=== PATIENT | female | born 1950 | race Caucasian/White ===

== ENCOUNTER → 2017-06-09 | Outpatient (CLI) | payer OTHER ==
--- NOTE | 2017-06-09 16:39 | MG ---
Examination: Bilateral screening mammogram. Clinical history: Routine screening. Technique: Digital CC and MLO views of both breasts were obtained. Computer aided detection analysis was performed and used during the interpretation. Comparison: 11/19/2015. Findings: The breasts are composed of scattered fibroglandular densities. Benign-appearing calcifications are noted in the breasts bilaterally. No suspicious mass, area of architectural distortion or suspicious cluster of microcalcifications is noted. Impression: 1. No mammographic evidence of malignancy. BI-RADS category 2-benign findings. Recommend routine annual screening mammogram. Diagnostic CAD was utilized and reviewed. * 0 (ZERO) - ASSESSMENT INCOMPLETE; ADDITIONAL IMAGING IS NEEDED. * 0C - ASSESSMENT INCOMPLETE, NEEDS ADDITIONAL IMAGING EVALUATION AND/OR PRIOR MAMMOGRAMS FOR COMPAR RYAN. * 1/1 (ONE) - NEGATIVE. * 2/II (TWO) - BENIGN FINDINGS. * 3/III (THREE) - PROBABLY BENIGN FINDING; SHORT INTERVAL FOLLOW-UP SUGGESTED. * 4/IV (FOUR) - SUSPICIOUS ABNORMALITY; BIOPSY SHOULD BE CONSIDERED. * 5/V - HIGHLY SUSPICIOUS OF MALIGNANCY; BIOPSY SHOULD BE PERFORMED. * 6/IV - KNOWN BIOPSY PROVEN MALIGNANCY-APPROPRIATE ACTION SHOULD BE TAKEN. A NEGATIVE X-RAY REPORT SHOULD NOT DELAY BIOPSY IF A DOMINANT OR CLINICALLY SUSPICIOUS MASS IS PRESENT; 4 TO 8 PERCENT OF CANCERS ARE NOT IDENTIFIED BY X-RAY. A NEGATIVE REPORT MAY REINFORCE THE CLINICAL IMPRESSION. ADENOSIS AND DENSE BREASTS MAY OBSCURE AN UNDERLYING NEOPLASM. Reported By:
== END ==
LOC: RAD 09:36
PROVIDERS: ATTEND Internal Medicine
DX: Z12.31 Encounter for screening mammogram for malignant neoplasm of breast (principal)
CPT/HCPCS: 77067

== ENCOUNTER → 2017-07-21 | Day surgery (SDC) | payer OTHER ==
[~2017-07-21] MED LIST: D5 LR 1000 ML 1,000 ML IV ONE; DIPRIVAN VIAL 0 ML ONE; FENTANYL INJ 100 mcg ONE; PEPCID 20 MG IV PREMIX* 20 MG/50 ML BAG IV ONE; REGLAN INJ 10 MG VIAL ONE; VERSED ONE
[2017-07-21 08:49] VITALS: BP 113/59
== END ==
LOC: SURG1 08:26
PROVIDERS: ATTEND Internal Medicine Gastroenterology
PROC: 0DJD8ZZ Inspection of Lower Intestinal Tract, Via Natural or Artificial Opening Endoscopic (ICD-10-PCS; principal; 2017-07-21)
DX: Z53.9 Procedure and treatment not carried out, unspecified reason (principal); Z86.010 Personal history of colon polyps
CPT/HCPCS: A4222; S0028; J2250; J2765; J3010; J3490; J7120

== ENCOUNTER → 2018-03-03 | Outpatient (CLI) | payer OTHER ==
[2017-07-21 08:49] VITALS: BP 113/59
--- NOTE | 2018-03-03 12:12 | CT ---
History: Dizziness and weakness x1 week Study: CT head without contrast Findings: [address] imaging through the head is performed with coronal and sagittal reformatted i mages submitted as well. Ventricles are normal in size and position. Rock-white matter appear unremar kable. No space-occupying mass, bleed, infarct or subdural collection is identified. The bony calvari um appears intact. Impression: Normal CT of the head. Reported By:
== END ==
LOC: RAD 11:01
PROVIDERS: ATTEND Nurse Practitioner Family
DX: R51 Headache (principal); R42 Dizziness and giddiness
CPT/HCPCS: 70450

== ENCOUNTER 2020-07-14 14:12 | Inpatient (IN) ==
[2020-07-14] MEDS ORDERED: REMDESIVIR (INVESTIGATIONAL DRUG GS-5734) 200 MG in NS 250 ML IV 250 ML IV NR (16:15)
[2020-07-14] MEDS: MUCOMYST (RESPIRATORY USE ONLY) NEB SCH ×2 (16:24→21:34)
[2020-07-14] MEDS: PULMICORT NEB TX 0.5 MG NEB SCH ×2 (16:24→21:34)
[2020-07-14] MEDS ORDERED: DUONEB 0.5 MG/3 MG (3 mL) NEB ONE (16:54)
[2020-07-14 16:57] LABS: BASOPHILS % (AUTO) 0.3 % (0.2-1.0); HEMATOCRIT 40.2 % (36.0-47.0); HEMOGLOBIN 13.6 g/dL (12.0-16.0); LYMPHOCYTES # (AUTO) 1.1 X10^3/uL (1.3-2.9); LYMPHOCYTES % (AUTO) 13.4 % (21.0-51.0); MEAN CORPUSCULAR HEMOGLOBIN 29.3 pg (27.0-34.0); MEAN CORPUSCULAR HGB CONC 33.8 g/dL (33.0-35.0); MEAN CORPUSCULAR VOLUME 86.6 fL (80.0-100.0); MEAN PLATELET VOLUME 8.6 fL (7.4-11.0); MONOCYTES # (AUTO) 0.5 x10^3/uL (0.3-0.8); MONOCYTES % (AUTO) 6.1 % (0.0-13.0); NEUTROPHILS # (AUTO) 6.8 x10^3/uL (2.2-4.8); NEUTROPHILS % (AUTO) 80.2 % (42.0-75.0); PLATELET COUNT 249 X10^3/uL (150.0-450.0); RED BLOOD COUNT 4.64 X10^6/uL (3.5-5.4); RED CELL DISTRIBUTION WIDTH 12.6 % (11.6-16.5); WHITE BLOOD COUNT 8.4 X10^3/uL (3.6-10.0)
[2020-07-14 17:04] LABS: ABG BASE EXCESS 1.6 mmol/L (-2.0-2.0); ABG HCO3 21.6 mmol/L (22-26)
[2020-07-14 17:05] LABS: ABG ALLEN TEST POS
[2020-07-14 17:23] LABS: ALANINE AMINOTRANSFERASE 27 Units/L (12-78); ALKALINE PHOSPHATASE 62 Units/L (46-116); ASPARTATE AMINO TRANSFERASE 31 Units/L (15-37); BLOOD UREA NITROGEN 13 mg/dL (7-18); CALCIUM 8.4 mg/dL (8.5-10.1); CARBON DIOXIDE 28.1 mmol/L (21-32); CHLORIDE 99 mmol/L (98-107); CKMB % 1.9 % (<4); COR CA(FOR HYPOALB) 9.2 mg/dL (8.5-10.1); CREATINE KINASE 52 Units/L (26-192); CREATINE KINASE MB < 1.0 ng/mL (0-4.0); CREATININE 1.16 mg/dL (0.55-1.02); SODIUM 136 mmol/L (136-145); TOTAL PROTEIN 7.1 g/dL (6.4-8.2); TROPONIN I < 0.02 ng/mL (0-1.5); eGFR NON BLACK RACES 49 (>60)
[2020-07-14] MEDS ORDERED: ZOFRAN INJ 4 MG VIAL ONE (17:23)
[2020-07-14] MEDS ORDERED: NS 1/2 1000 ML IV 1,000 ML IV ONE (17:24)
[2020-07-14] MEDS: ROBITUSSIN DM PO SCH ×2 (17:30→23:06)
[2020-07-14] MEDS: NS 1/2 1000 ML IV 1,000 ML IV SCH (17:30)
[2020-07-14] MEDS: PEPCID 20 MG IV PREMIX* 20 MG/50 ML BAG IV SCH ×2 (17:40→22:04)
[2020-07-14] MEDS: PROTONIX INJ 40 MG VIAL IVP SCH ×2 (17:40→22:05)
[2020-07-14] MEDS: ZOFRAN INJ 4 MG VIAL IVP PRN ×2 (17:40→22:45)
[2020-07-14] MEDS: DUONEB 0.5 MG/3 MG (3 mL) NEB SCH ×2 (17:45→21:34)
[2020-07-14] MEDS: VSL#3 PO SCH (17:45)
[2020-07-14] MEDS: LEVAQUIN PREMIX IV 750 MG 750 MG/150 ML BAG IV SCH (18:28)
[2020-07-14] MEDS ORDERED: TYLENOL 325 MG TAB PO ONE (19:20)
[2020-07-14] MEDS: TYLENOL 325 MG TAB PO PRN (19:30)
[2020-07-14] MEDS ORDERED: PHENERGAN INJ 25 MG IM PRN (19:50)
[2020-07-14] MEDS ORDERED: PHENERGAN INJ 25 MG IM ONE (19:53)
[2020-07-14] MEDS ORDERED: NS 250 ML IV 250 ML IV ONE (22:12)
[2020-07-14] MEDS ORDERED: REMDESIVIR (INVESTIGATIONAL DRUG GS-5734) IV ONE (22:12)
[2020-07-14] MEDS: TUSSIONEX PENNKINETIC SUSP PO SCH (23:06)
[2020-07-14] MEDS: SOLU-Medrol 40 MG VIAL IVP SCH (23:07)
[2020-07-14] MEDS: TESSALON PERLES PO SCH (23:08)
[2020-07-15 05:16] LABS: BASOPHILS % (AUTO) 0.3 % (0.2-1.0); HEMATOCRIT 39.3 % (36.0-47.0); HEMOGLOBIN 13.4 g/dL (12.0-16.0); LYMPHOCYTES # (AUTO) 0.7 X10^3/uL (1.3-2.9); LYMPHOCYTES % (AUTO) 11.9 % (21.0-51.0); MEAN CORPUSCULAR HEMOGLOBIN 29.5 pg (27.0-34.0); MEAN CORPUSCULAR HGB CONC 34.1 g/dL (33.0-35.0); MEAN CORPUSCULAR VOLUME 86.5 fL (80.0-100.0); MEAN PLATELET VOLUME 9.4 fL (7.4-11.0); MONOCYTES # (AUTO) 0.3 x10^3/uL (0.3-0.8); MONOCYTES % (AUTO) 4.3 % (0.0-13.0); NEUTROPHILS # (AUTO) 5.3 x10^3/uL (2.2-4.8); NEUTROPHILS % (AUTO) 83.5 % (42.0-75.0); PLATELET COUNT 246 X10^3/uL (150.0-450.0); RED BLOOD COUNT 4.54 X10^6/uL (3.5-5.4); RED CELL DISTRIBUTION WIDTH 12.7 % (11.6-16.5); WHITE BLOOD COUNT 6.3 X10^3/uL (3.6-10.0)
[2020-07-15 05:28] LABS: ALANINE AMINOTRANSFERASE 31 Units/L (12-78); ALBUMIN 2.6 g/dL (3.4-5.0); ALKALINE PHOSPHATASE 58 Units/L (46-116); ASPARTATE AMINO TRANSFERASE 39 Units/L (15-37); BLOOD UREA NITROGEN 10 mg/dL (7-18); CALCIUM 8.2 mg/dL (8.5-10.1); CARBON DIOXIDE 26.3 mmol/L (21-32); CHLORIDE 103 mmol/L (98-107); COR CA(FOR HYPOALB) 9.3 mg/dL (8.5-10.1); COR NA(FOR HYPERGLY) 139 mmol/L (136-145); CREATININE 1.07 mg/dL (0.55-1.02); SODIUM 138 mmol/L (136-145); TOTAL PROTEIN 6.8 g/dL (6.4-8.2); eGFR NON BLACK RACES 54 (>60)
[2020-07-15] MEDS: SOLU-Medrol 40 MG VIAL IVP SCH ×3 (05:42→21:40)
[2020-07-15] MEDS: TESSALON PERLES PO SCH ×3 (05:43→21:40)
[2020-07-15 06:00] LABS: ABG ALLEN TEST POS; ABG HCO3 24.8 mmol/L (22-26)
--- NOTE | 2020-07-15 06:07 | RAD ---
HISTORYPNEUMONIASTUDYCHEST, 1 [id number]/[id number] view of the chestFINDINGSCardiac and mediastinal contours appear normal. Mild worsening in right perihilar, left upper lobe and left lower lung airspace disease. Suspect small right pleural effusion. No pneumothorax.IMPRESSIONWorsening scattered airspace disease consistent with pneumonia.Electronically signed by: Abimael Walden (Jul 15, 2020 06:07:19)
[2020-07-15] MEDS: DUONEB 0.5 MG/3 MG (3 mL) NEB SCH ×4 (09:05→20:35)
[2020-07-15] MEDS: PULMICORT NEB TX 0.5 MG NEB SCH ×2 (09:05→20:35)
[2020-07-15] MEDS: MUCOMYST (RESPIRATORY USE ONLY) NEB SCH ×2 (09:05→20:35)
[2020-07-15] MEDS: TUSSIONEX PENNKINETIC SUSP PO SCH ×3 (09:15→21:40)
[2020-07-15] MEDS: VSL#3 PO SCH (09:15)
[2020-07-15] MEDS: REMDESIVIR (INVESTIGATIONAL DRUG GS-5734) 100 MG in NS 250 ML IV 250 ML IV SCH (09:15)
[2020-07-15] MEDS: LEVAQUIN PREMIX IV 750 MG 750 MG/150 ML BAG IV SCH ×2 (09:15→12:21)
[2020-07-15] MEDS: ROBITUSSIN DM PO SCH ×4 (09:15→21:40)
[2020-07-15] MEDS: PROTONIX INJ 40 MG VIAL IVP SCH ×2 (09:15→21:40)
--- NOTE | 2020-07-15 10:05 | DR.UPDATE ---
H&P Update History and Physical Update: History and Physical reviewed and patient examined. Changes noted: Yes with the following: PRESENTED TO THE OFFICE YESTERDAY WITH COMPLAINTS OF SHORTNESS OF BREATH, NON-PRODUCTIVE COUGH, FEVER, NASAL CONGESTION, NAUSEA/VOMITING, WEAKNESS, AND ACHING ALL OVER. SYMPTOMS HAVE BEEN PRESENT FOR THE PAST 2-3 WEEKS. SHE ADMITS TO TESTING POSITIVE FOR COVID-19 ON 07/01/20. SHE HAS TAKEN AZITHROMAX 500MG X 4 DAYS, HYDROXYCHLOROQUIN 200MG BID X 4 DAYS, A MEDROL DOSEPACK, AND HAS BEEN USING A VENTOLIN INHALER. SHE DENIES IMPROVEMENT IN SYMPTOMS DESPITE COMPLIANCE WITH MEDICATIONS. SHE WAS ADMITTED FOR FURTHER EVALUATION AND TREATMENT OF PNEUMONIA DUE TO COVID-19. ON ARRIVAL TO THE HOSPITAL, VITALS WERE 99.0-72-17-93%NC-111/53. LABS WERE OBTAINED. ABNORMAL LAB VALUES INCLUDE THE FOLLOWING: CREATININE 1.16, GLUCOSE 108, CALCIUM 8.4, FERRITIN 333, CRP 97.70, ALBUMIN 3.0. CARDIAC ENZYMES WITHIN NORMAL LIMITS. ABG REVEALED: PH 7.600, PC02 22, P02 64, HC03 21.6, 02 SAT 95, FI02 21.0. BLOOD CULTURES WERE SET UP. A CHEST XRAY WAS OBTAINED AND REVEALED: Worsening scattered airspace disease consistent with pneumonia. EKG REVEALED: SINUS RHYTHM WITH HR 85. SHE WAS STARTED ON 1/2NS AT 75 ML/HR, REMDESIVIR 200MG IV X 1 DOSE, THEN 100MG IV DAILY, LEVAQUIN 750MG IV DAILY, DUONEBS QID, PULMICORT NEBS BID, MUCOMYST IN NEBS BID, TESSALON PERLES 200MG PO TID, TUSSIONEX 5ML PO Q12H, PEPCID 20MG IV Q12H, ROBITUSSIN DM 10 ML PO QID, SOLU-MEDROL 80MG IV Q8H, ZOFRAN 4MG IV Q6H PRN, PROTONIS 40MG IV BID, PHENERGAN 12.5MG IM Q6H PRN. WE HAVE ORDERED A UNIT OF CONVALESCENT PLASMA TO BE ADMINISTERED WHEN IT IS AVAILABLE. OTHERWISE, WE PLAN TO FOLLOW UP WITH AM LABS, CHEST XRAY, ABG, AND CONTINUE TO MONITOR. Prescription drug monitoring program results: PDMP was not reviewed H&P Reviewed: Yes Patient was examined?: Yes
[2020-07-15] MEDS: PEPCID 20 MG IV PREMIX* 20 MG/50 ML BAG IV SCH ×2 (10:55→21:40)
[2020-07-15] MEDS: LOVENOX INJ 30 MG SYR SC SCH ×2 (12:22→21:40)
[2020-07-15] MEDS: NS 1/2 1000 ML IV 1,000 ML IV SCH ×2 (12:22→21:57)
[2020-07-15] MEDS ORDERED: NS 1/2 1000 ML IV 1,000 ML IV ONE (12:24)
[2020-07-16 05:30] LABS: BASOPHILS % (AUTO) 0.1 % (0.2-1.0); HEMATOCRIT 38.6 % (36.0-47.0); HEMOGLOBIN 12.8 g/dL (12.0-16.0); LYMPHOCYTES # (AUTO) 0.9 X10^3/uL (1.3-2.9); LYMPHOCYTES % (AUTO) 7.7 % (21.0-51.0); MEAN CORPUSCULAR HEMOGLOBIN 28.8 pg (27.0-34.0); MEAN CORPUSCULAR HGB CONC 33.2 g/dL (33.0-35.0); MEAN CORPUSCULAR VOLUME 86.9 fL (80.0-100.0); MEAN PLATELET VOLUME 9.6 fL (7.4-11.0); MONOCYTES # (AUTO) 0.6 x10^3/uL (0.3-0.8); MONOCYTES % (AUTO) 5.1 % (0.0-13.0); NEUTROPHILS # (AUTO) 9.7 x10^3/uL (2.2-4.8); NEUTROPHILS % (AUTO) 87.1 % (42.0-75.0); PLATELET COUNT 307 X10^3/uL (150.0-450.0); RED BLOOD COUNT 4.44 X10^6/uL (3.5-5.4); RED CELL DISTRIBUTION WIDTH 12.6 % (11.6-16.5); WHITE BLOOD COUNT 11.1 X10^3/uL (3.6-10.0)
[2020-07-16] MEDS ORDERED: NS 1/2 1000 ML IV 1,000 ML IV ONE (05:48)
[2020-07-16] MEDS: SOLU-Medrol 40 MG VIAL IVP SCH ×3 (06:00→21:15)
[2020-07-16] MEDS: TESSALON PERLES PO SCH ×3 (06:00→21:15)
--- NOTE | 2020-07-16 06:10 | RAD ---
HISTORYSOBSTUDYCHEST, 1 [id number] trachea is midline. The cardiac silhouette is mildly enlarged.. Right upper lobe infiltrate has slightly increased in size. Patchy infiltrates within the left upper and left lower lobes are unchanged. Discoid atelectasis within the right lung base.. The bony thorax is unremarkable.IMPRESSIONWorsening right upper lobe infiltrate.Stable patchy airspace disease left upper and left lower lobes.Electronically signed by: Kishore Cohen (Jul 16, 2020 06:09:57)
[2020-07-16] MEDS: TYLENOL 325 MG TAB PO PRN (06:13)
[2020-07-16] MEDS: NS 1/2 1000 ML IV 1,000 ML IV SCH (06:13)
[2020-07-16 06:18] LABS: ALANINE AMINOTRANSFERASE 55 Units/L (12-78); ALBUMIN 2.4 g/dL (3.4-5.0); ALKALINE PHOSPHATASE 57 Units/L (46-116); ASPARTATE AMINO TRANSFERASE 62 Units/L (15-37); BLOOD UREA NITROGEN 12 mg/dL (7-18); CALCIUM 8.5 mg/dL (8.5-10.1); CARBON DIOXIDE 25.2 mmol/L (21-32); CHLORIDE 104 mmol/L (98-107); COR CA(FOR HYPOALB) 9.8 mg/dL (8.5-10.1); COR NA(FOR HYPERGLY) 141 mmol/L (136-145); CREATININE 0.91 mg/dL (0.55-1.02); SODIUM 140 mmol/L (136-145); TOTAL PROTEIN 6.4 g/dL (6.4-8.2); eGFR NON BLACK RACES > 60 (>60)
[2020-07-16] MEDS: DUONEB 0.5 MG/3 MG (3 mL) NEB SCH ×4 (08:15→20:40)
[2020-07-16] MEDS: PULMICORT NEB TX 0.5 MG NEB SCH ×2 (08:15→20:40)
[2020-07-16] MEDS: MUCOMYST (RESPIRATORY USE ONLY) NEB SCH ×2 (08:15→20:40)
[2020-07-16] MEDS: LEVAQUIN PREMIX IV 750 MG 750 MG/150 ML BAG IV SCH (09:05)
[2020-07-16] MEDS: PROTONIX INJ 40 MG VIAL IVP SCH ×2 (09:10→21:15)
[2020-07-16] MEDS: TUSSIONEX PENNKINETIC SUSP PO SCH ×2 (09:10→21:15)
[2020-07-16] MEDS: ROBITUSSIN DM PO SCH ×4 (09:10→21:15)
[2020-07-16] MEDS: VSL#3 PO SCH (09:10)
[2020-07-16 10:40] LABS: ABG ALLEN TEST POS; ABG BASE EXCESS -0.7 mmol/L (-2.0-2.0); ABG HCO3 23.2 mmol/L (22-26)
[2020-07-16] MEDS: LOVENOX INJ 30 MG SYR SC SCH ×2 (10:51→21:15)
[2020-07-16] MEDS: PEPCID 20 MG IV PREMIX* 20 MG/50 ML BAG IV SCH ×2 (10:51→21:15)
[2020-07-16] MEDS: REMDESIVIR (INVESTIGATIONAL DRUG GS-5734) 100 MG in NS 250 ML IV 250 ML IV SCH (11:40)
--- NOTE | 2020-07-16 12:23 | PCM.PROG ---
Progress Note - Progress Note for Day of Date of Exam: 07/16/20 - Subjective Subjective: IS BEING TREATED FOR PNEUMONIA DUE TO COVID-19. TODAY, SHE IS ALERT AND ORIENTED, LYING IN BED ON MORNING ROUNDS. SHE CONTINUES WITH COMPLAINTS OF COUGH, SHORTNESS OF BREATH, HEADACHE, AND WEAKNESS TODAY. SHE IS CURRENTLY RECEIVING OXYGEN VIA NASAL CANNULA AT 2 L/MIN. SHE REPORTS SLIGHT IMPROVEMENT IN SYMPTOMS TODAY. ON EXAMINATION, HEART IS REGULAR IN RATE AND RHYTHM. BILATERAL LUNGS ARE NOTED WITH SCATTERED WHEEZING THROUGHOUT. ABDOMEN IS ROUND, SOFT, AND NON-TENDER. NORMAL BOWEL SOUNDS ARE NOTED IN ALL QUADRANTS. HER VITALS THIS MORNING ARE: 97.8-68-22-100%NC-108/58. LABS WERE OBTAINED. ABNORMAL LAB VALUES INCLUDE THE FOLLOWING: HCT 11.1, POTASSIUM 3.3, GLUCOSE 147, GLUCOSE 147, FERRITIN 597, AST 62, CRP 66.0, ALBUMIN 2.4. AN ABG WAS OBTAINED TODAY AND REVEALED: PH 7.430, PC02 35, P02 60, HC03 23.2, 02 SAT 91, FI02 21.0. BLOOD CULTURES ARE PENDING. A CHEST XRAY WAS OBTAINED AND REVEALED: Worsening right upper lobe infiltrate. Stable patchy airspace disease left upper and left lower lobes. SHE IS CURRENTLY RECEIVING 1/2NS AT 75 ML/HR, REMDESIVIR 100MG IV DAILY, LEVAQUIN 750MG IV DAILY, DUONEBS QID, PULMICORT NEBS BID, MUCOMYST IN NEBS BID, TESSALON PERLES 200MG PO TID, TUSSIONEX 5ML PO Q12H, PEPCID 20MG IV Q12H, ROBITUSSIN DM 10 ML PO QID, SOLU-MEDROL 80MG IV Q8H, ZOFRAN 4MG IV Q6H PRN, PROTONIX 40MG IV BID, PHENERGAN 12.5MG IM Q6H PRN. TODAY, WE WILL START KLONOPIN 0.5MG PO BID, FIORCET 1-2 TABS QID PRN, OBTAIN A BNP, AND OBTAIN AN ECHO. WE WILL CONTINUE WITH CURRENT PLAN OF CARE TODAY. OTHERWISE, WE PLAN TO FOLLOW UP WITH AM LABS AND CONTINUE TO MONITOR. - Past Medical Family Social History Past Med/Fam/Surg Hx: No changes since H&P Allergies: Allergies No Known Drug Allergies Allergy (Verified 07/21/17 08:40) - Review of Systems ROS: No change since H&P - Vital Signs and I&O's Vital Signs: Temperature 97.8 F Pulse Rate [Left Brachial] 79 Pulse Rate 68 Respiratory Rate 18 Blood Pressure [Left Arm] 135/65 Blood Pressure 108/58 O2 Sat by Pulse Oximetry 100 Intake and Output: Intake & Output 07/14/20 07/15/20 07/16/20 07/17/20 11:59 11:59 11:59 11:59 Intake Total 1460 / 1460 2856 / 2856 Balance 1460 / 1460 2856 / 2856 - Physical Exam Oriented: Normal Eyes: Normal Ear: Normal Nose: Normal Throat: Normal Respiratory: Generalized, Wheezes Cardiovascular: Normal : Normal Auscultation: Bowel Sounds: Normal Palpation: Normal Tenderness: Normal Skin: Normal Musculoskeletal: Normal Psychiatric: Normal Mood Description: Calm Affect: Normal Speech Pattern: Clear, Appropriate - Laboratory and Diagnostics Result Diagrams: 07/16/20 04:36 07/16/20 04:36 Labs: 07/14/20 16:40 Blood Blood Culture - Preliminary 07/14/20 16:24 Blood Blood Culture - Preliminary Laboratory WBC 11.1 X10^3/uL (3.6-10.0) H 07/16/20 04:36 RBC 4.44 X10^6/uL (3.5-5.4) 07/16/20 04:36 Hgb 12.8 g/dL (12.0-16.0) 07/16/20 04:36 Hct 38.6 % (36.0-47.0) 07/16/20 04:36 MCV 86.9 fL (80.0-100.0) 07/16/20 04:36 MCH 28.8 pg (27.0-34.0) 07/16/20 04:36 MCHC 33.2 g/dL (33.0-35.0) 07/16/20 04:36 RDW 12.6 % (11.6-16.5) 07/16/20 04:36 Plt Count 307 X10^3/uL (150.0-450.0) 07/16/20 04:36 MPV 9.6 fL (7.4-11.0) 07/16/20 04:36 Neut % (Auto) 87.1 % (42.0-75.0) H 07/16/20 04:36 Lymph % (Auto) 7.7 % (21.0-51.0) L 07/16/20 04:36 [place] % (Auto) 5.1 % (0.0-13.0) 07/16/20 04:36 Eos % (Auto) 0.0 % (0.9-2.9) L 07/16/20 04:36 Baso % (Auto) 0.1 % (0.2-1.0) L 07/16/20 04:36 Neut # (Auto) 9.7 x10^3/uL (2.2-4.8) H 07/16/20 04:36 Lymph # (Auto) 0.9 X10^3/uL (1.3-2.9) L 07/16/20 04:36 [place] # (Auto) 0.6 x10^3/uL (0.3-0.8) 07/16/20 04:36 Eos # (Auto) 0.0 x10^3/uL (0.0-0.2) 07/16/20 04:36 Baso # (Auto) 0.0 X10^3/uL (0.0-0.1) 07/16/20 04:36 Absolute Nucleated RBC 0.0 /100WBC 07/16/20 04:36 Sample Site Rr 07/16/20 10:35 ABG pH 7.430 (7.35-7.45) 07/16/20 10:35 ABG pCO2 35.0 mmHg (35.0-45.0) 07/16/20 10:35 ABG pO2 60.0 mmHg (80.0-100.0) L 07/16/20 10:35 ABG HCO3 23.2 mmol/L (22-26) 07/16/20 10:35 ABG O2 Saturation 91.0 % (90-100) 07/16/20 10:35 ABG Base Excess -0.7 mmol/L (-2.0-2.0) 07/16/20 10:35 Brant Test Pos 07/16/20 10:35 A-a Gradient 46.0 mmHg 07/16/20 10:35 FiO2 21.0 07/16/20 10:35 Blood Gas Comments Buck well cb 07/16/20 10:35 Sodium 140 mmol/L (136-145) 07/16/20 04:36 Corrected Sodium 141 mmol/L (136-145) 07/16/20 04:36 Potassium 3.3 mmol/L (3.5-5.1) L 07/16/20 04:36 Chloride 104 mmol/L (98-107) 07/16/20 04:36 Carbon Dioxide 25.2 mmol/L (21-32) 07/16/20 04:36 BUN 12 mg/dL (7-18) 07/16/20 04:36 Creatinine 0.91 mg/dL (0.55-1.02) 07/16/20 04:36 Est GFR (MDRD) Af Amer > 60 (>60) 07/16/20 04:36 Est GFR (MDRD) Non-Af > 60 (>60) 07/16/20 04:36 Glucose 147 mg/dL (65-99) H 07/16/20 04:36 Calcium 8.5 mg/dL (8.5-10.1) 07/16/20 04:36 Corrected Calcium 9.8 mg/dL (8.5-10.1) 07/16/20 04:36 Ferritin 597 ng/mL (8-252) H 07/16/20 04:36 Total Bilirubin 0.20 mg/dL (0.2-1.0) 07/16/20 04:36 AST 62 Units/L (15-37) H 07/16/20 04:36 ALT 55 Units/L (12-78) 07/16/20 04:36 Alkaline Phosphatase 57 Units/L (46-116) 07/16/20 04:36 Creatine Kinase 52 Units/L (26-192) 07/14/20 16:24 CK-MB (CK-2) < 1.0 ng/mL (0-4.0) 07/14/20 16:24 CK/CKMB % Calc 1.9 % (<4) 07/14/20 16:24 Troponin I < 0.02 ng/mL (0-1.5) 07/14/20 16:24 C-Reactive Protein 66.00 mg/L (0-3.0) H 07/16/20 04:36 Total Protein 6.4 g/dL (6.4-8.2) 07/16/20 04:36 Albumin 2.4 g/dL (3.4-5.0) L 07/16/20 04:36 Globulin 4.0 g/dL (2.5-4.5) 07/16/20 04:36 Albumin/Globulin Ratio 0.6 Ratio (1.1-2.1) L 07/16/20 04:36 Blood Type O POSITIVE 07/15/20 10:20 - Plan (1) Pneumonia due to 2019 novel coronavirus Status: Acute Plan: 1/2NS AT 75 ML/HR, REMDESIVIR 100MG IV DAILY, LEVAQUIN 750MG IV DAILY, DUONEBS QID, PULMICORT NEBS BID, MUCOMYST IN NEBS BID, TESSALON PERLES 200MG PO TID, TUSSIONEX 5ML PO Q12H, PEPCID 20MG IV Q12H, ROBITUSSIN DM 10 ML PO QID, SOLU-MEDROL 80MG IV Q8H, ZOFRAN 4MG IV Q6H PRN, PROTONIX 40MG IV BID, PHENERGAN 12.5MG IM Q6H PRN. SUPPLEMENTAL OXYGEN (2) Dyslipidemia Status: Acute (3) Depression Status: Acute Qualifiers: Depression Type: unspecified Qualified Code(s): F32.9 - Major depressive disorder, single episode, unspecified
[2020-07-16] MEDS ORDERED: FIORICET TAB PO PRN (12:35)
[2020-07-16] MEDS ORDERED: TYLENOL 325 MG TAB PO ONE (15:54)
[2020-07-16] MEDS ORDERED: BENADRYL INJ 50 MG VIAL IVP ONE (15:55)
[2020-07-16] MEDS: KLONOPIN TAB 0.5 MG PO SCH (21:15)
[2020-07-17] MEDS: NS 1/2 1000 ML IV 1,000 ML IV SCH ×2 (01:00→02:22)
[2020-07-17] MEDS ORDERED: NS 1/2 1000 ML IV 1,000 ML IV ONE (01:17)
[2020-07-17 05:11] LABS: ABG ALLEN TEST POS; ABG BASE EXCESS -1.8 mmol/L (-2.0-2.0); ABG HCO3 22.1 mmol/L (22-26)
[2020-07-17 05:19] LABS: BASOPHILS % (AUTO) 0.2 % (0.2-1.0); EOSINOPHILS % (AUTO) 0.1 % (0.9-2.9); HEMOGLOBIN 11.9 g/dL (12.0-16.0); LYMPHOCYTES % (AUTO) 6.8 % (21.0-51.0); MEAN CORPUSCULAR HEMOGLOBIN 29.1 pg (27.0-34.0); MEAN CORPUSCULAR VOLUME 85.5 fL (80.0-100.0); MEAN PLATELET VOLUME 8.8 fL (7.4-11.0); MONOCYTES # (AUTO) 0.8 x10^3/uL (0.3-0.8); MONOCYTES % (AUTO) 5.2 % (0.0-13.0); NEUTROPHILS # (AUTO) 12.6 x10^3/uL (2.2-4.8); NEUTROPHILS % (AUTO) 87.7 % (42.0-75.0); PLATELET COUNT 378 X10^3/uL (150.0-450.0); RED CELL DISTRIBUTION WIDTH 12.8 % (11.6-16.5); WHITE BLOOD COUNT 14.4 X10^3/uL (3.6-10.0)
[2020-07-17 05:33] LABS: ALANINE AMINOTRANSFERASE 48 Units/L (12-78); ALBUMIN 2.3 g/dL (3.4-5.0); ALKALINE PHOSPHATASE 56 Units/L (46-116); ASPARTATE AMINO TRANSFERASE 38 Units/L (15-37); BLOOD UREA NITROGEN 11 mg/dL (7-18); CALCIUM 8.5 mg/dL (8.5-10.1); CHLORIDE 107 mmol/L (98-107); COR CA(FOR HYPOALB) 9.9 mg/dL (8.5-10.1); COR NA(FOR HYPERGLY) 143 mmol/L (136-145); CREATININE 0.87 mg/dL (0.55-1.02); SODIUM 142 mmol/L (136-145); TOTAL PROTEIN 5.8 g/dL (6.4-8.2); eGFR NON BLACK RACES > 60 (>60)
--- NOTE | 2020-07-17 06:15 | RAD ---
HISTORYFollow-up COVID-19STUDYChest AP [id number] size is accentuated by hypo inflation. The heart is likely still enlarged. There has been some improvement in the upper lobe infiltrates being followed. The low er lung miller appear clear. There is some subsegmental atelectasis in the right lung base and left c ostophrenic angle. No pleural effusions are identified. Bony thorax is unremarkable.IMPRESSIONContinu ed hypo inflationImproving bilateral infiltratesNo change bibasilar subsegmental atelectasisElectroni helen signed by: IVANA CORTEZ (Jul 17, 2020 06:14:48)
[2020-07-17] MEDS: SOLU-Medrol 40 MG VIAL IVP SCH ×3 (06:48→21:06)
[2020-07-17] MEDS: TESSALON PERLES PO SCH ×3 (06:48→21:07)
[2020-07-17] MEDS: MUCOMYST (RESPIRATORY USE ONLY) NEB SCH ×2 (09:25→20:30)
[2020-07-17] MEDS: PULMICORT NEB TX 0.5 MG NEB SCH ×2 (09:25→20:30)
[2020-07-17] MEDS: DUONEB 0.5 MG/3 MG (3 mL) NEB SCH ×4 (09:25→20:30)
[2020-07-17] MEDS: ROBITUSSIN DM PO SCH ×4 (10:24→21:06)
[2020-07-17] MEDS: PROTONIX INJ 40 MG VIAL IVP SCH ×2 (10:24→21:05)
[2020-07-17] MEDS: KLONOPIN TAB 0.5 MG PO SCH ×2 (10:25→21:05)
[2020-07-17] MEDS: WELLBUTRIN SR 150 MG (BID) PO SCH ×2 (10:26→21:06)
[2020-07-17] MEDS: ZOLOFT PO SCH (10:26)
[2020-07-17] MEDS: ZINC SULFATE PO SCH (10:27)
[2020-07-17] MEDS: VSL#3 PO SCH (10:27)
[2020-07-17] MEDS: VISTARIL PO SCH (10:28)
[2020-07-17] MEDS: PEPCID 20 MG IV PREMIX* 20 MG/50 ML BAG IV SCH ×2 (10:29→21:05)
[2020-07-17] MEDS: LOVENOX INJ 30 MG SYR SC SCH ×2 (10:30→21:05)
[2020-07-17] MEDS ORDERED: TUSSIONEX PENNKINETIC SUSP ONE (10:43)
[2020-07-17] MEDS: TUSSIONEX PENNKINETIC SUSP PO SCH ×2 (10:45→21:06)
[2020-07-17] MEDS: LEVAQUIN PREMIX IV 750 MG 750 MG/150 ML BAG IV SCH (10:45)
[2020-07-17] MEDS: NS + KCL 20 MEQ/L 1,000 ML IV SCH (10:53)
--- NOTE | 2020-07-17 11:00 | PCM.PROG ---
Progress Note - Progress Note for Day of Date of Exam: 07/17/20 - Subjective Subjective: IS BEING TREATED FOR PNEUMONIA DUE TO COVID-19. TODAY, SHE IS ALERT AND ORIENTED, LYING IN BED ON MORNING ROUNDS. SHE CONTINUES WITH COMPLAINTS OF COUGH, SHORTNESS OF BREATH, HEADACHE, AND WEAKNESS TODAY. SHE IS CURRENTLY RECEIVING OXYGEN VIA NASAL CANNULA AT 2 L/MIN. SHE REPORTS SLIGHT IMPROVEMENT IN SYMPTOMS TODAY. ON EXAMINATION, HEART IS REGULAR IN RATE AND RHYTHM. BILATERAL LUNGS ARE NOTED WITH DIMINISHED LUNG SOUNDS. ABDOMEN IS ROUND, SOFT, AND NON-TENDER. NORMAL BOWEL SOUNDS ARE NOTED IN ALL QUADRANTS. HER VITALS THIS MORNING ARE: 97.4-85-19-96%-117/56. LABS WERE OBTAINED. ABNORMAL LAB VALUES INCLUDE THE FOLLOWING: WBC 14.4, HGB 11.9, HCT 35.0, POTASSIUM 2.9, GLUCOSE 152, FERRITIN 459, AST 38, CRP 23.70, TOTAL PROTEIN 5.8, ALBUMIN 2.3. AN ABG WAS OBTAINED TODAY AND REVEALED: PH 7.420, PC02 34.0, P02 57.0, HC03 22.1, BASE EXCESS -1.8, FI02 28. BLOOD CULTURES ARE PENDING. A CHEST XRAY WAS OBTAINED AND REVEALED: Heart size is accentuated by hypo inflation. The heart is likely still enlarged. There has been some improvement in the upper lobe infiltrates being followed. The lower lung miller appear clear. There is some subsegmental atelectasis in the right lung base and left costophrenic angle. No pleural effusions are identified. Bony thorax is unremarkable. SHE IS CURRENTLY RECEIVING 1/2NS AT 75 ML/HR, REMDESIVIR 100MG IV DAILY, LEVAQUIN 750MG IV DAILY, DUONEBS QID, PULMICORT NEBS BID, MUCOMYST IN NEBS BID, TESSALON PERLES 200MG PO TID, TUSSIONEX 5ML PO Q12H, PEPCID 20MG IV Q12H, ROBITUSSIN DM 10 ML PO QID, SOLU-MEDROL 80MG IV Q8H, ZOFRAN 4MG IV Q6H PRN, PROTONIX 40MG IV BID, PHENERGAN 12.5MG IM Q6H PRN, KLONOPIN 0.5MG PO BID, AND FIORCET 1-2 TABS QID PRN. TODAY, WE WILL CHANGE HER IV FLUIDS TO NS WITH 20MEQ KCL AT 75 ML/HR. OTHERWISE, WE WILL CONTINUE WITH CURRENT PLAN OF CARE TODAY. OTHERWISE, WE PLAN TO FOLLOW UP WITH AM LABS AND CONTINUE TO MONITOR. - Past Medical Family Social History Past Med/Fam/Surg Hx: No changes since H&P Allergies: Allergies No Known Drug Allergies Allergy (Verified 07/21/17 08:40) - Review of Systems ROS: No change since H&P - Vital Signs and I&O's Vital Signs: Temperature 97.4 F Pulse Rate [Left Brachial] 79 Pulse Rate 119 Respiratory Rate 20 Blood Pressure [Left Arm] 135/65 Blood Pressure 117/56 O2 Sat by Pulse Oximetry 94 Intake and Output: Intake & Output 07/14/20 07/15/20 07/16/20 07/17/20 11:59 11:59 11:59 11:59 Intake Total 1460 / 1460 2856 / 2856 3770 / 3770 Balance 1460 / 1460 2856 / 2856 3770 / 3770 - Physical Exam Oriented: Normal Eyes: Normal Ear: Normal Nose: Normal Throat: Normal Respiratory: Generalized, Diminished Cardiovascular: Normal : Normal Auscultation: Bowel Sounds: Normal Palpation: Normal Tenderness: Normal Skin: Normal Musculoskeletal: Normal Psychiatric: Normal Mood Description: Calm Affect: Normal Speech Pattern: Clear, Appropriate - Laboratory and Diagnostics Result Diagrams: 07/17/20 04:23 07/17/20 04:23 Labs: 07/14/20 16:40 Blood Blood Culture - Preliminary 07/14/20 16:24 Blood Blood Culture - Preliminary Laboratory WBC 14.4 X10^3/uL (3.6-10.0) H 07/17/20 04:23 RBC 4.10 X10^6/uL (3.5-5.4) 07/17/20 04:23 Hgb 11.9 g/dL (12.0-16.0) L 07/17/20 04:23 Hct 35.0 % (36.0-47.0) L 07/17/20 04:23 MCV 85.5 fL (80.0-100.0) 07/17/20 04:23 MCH 29.1 pg (27.0-34.0) 07/17/20 04:23 MCHC 34.0 g/dL (33.0-35.0) 07/17/20 04:23 RDW 12.8 % (11.6-16.5) 07/17/20 04:23 Plt Count 378 X10^3/uL (150.0-450.0) 07/17/20 04:23 MPV 8.8 fL (7.4-11.0) 07/17/20 04:23 Neut % (Auto) 87.7 % (42.0-75.0) H 07/17/20 04:23 Lymph % (Auto) 6.8 % (21.0-51.0) L 07/17/20 04:23 [place] % (Auto) 5.2 % (0.0-13.0) 07/17/20 04:23 Eos % (Auto) 0.1 % (0.9-2.9) L 07/17/20 04:23 Baso % (Auto) 0.2 % (0.2-1.0) 07/17/20 04:23 Neut # (Auto) 12.6 x10^3/uL (2.2-4.8) H 07/17/20 04:23 Lymph # (Auto) 1.0 X10^3/uL (1.3-2.9) L 07/17/20 04:23 [place] # (Auto) 0.8 x10^3/uL (0.3-0.8) 07/17/20 04:23 Eos # (Auto) 0.0 x10^3/uL (0.0-0.2) 07/17/20 04:23 Baso # (Auto) 0.0 X10^3/uL (0.0-0.1) 07/17/20 04:23 Absolute Nucleated RBC 0.0 /100WBC 07/17/20 04:23 Sample Site Rrad 07/17/20 05:05 ABG pH 7.420 (7.35-7.45) 07/17/20 05:05 ABG pCO2 34.0 mmHg (35.0-45.0) L 07/17/20 05:05 ABG pO2 57.0 mmHg (80.0-100.0) L 07/17/20 05:05 ABG HCO3 22.1 mmol/L (22-26) 07/17/20 05:05 ABG O2 Saturation 90.0 % (90-100) 07/17/20 05:05 ABG Base Excess -1.8 mmol/L (-2.0-2.0) 07/17/20 05:05 Brant Test Pos 07/17/20 05:05 A-a Gradient 100.0 mmHg 07/17/20 05:05 FiO2 28.0 07/17/20 05:05 Blood Gas Comments Buck abg well-mtf 07/17/20 05:05 Sodium 142 mmol/L (136-145) 07/17/20 04:23 Corrected Sodium 143 mmol/L (136-145) 07/17/20 04:23 Potassium 2.9 mmol/L (3.5-5.1) L* 07/17/20 04:23 Chloride 107 mmol/L (98-107) 07/17/20 04:23 Carbon Dioxide 27.0 mmol/L (21-32) 07/17/20 04:23 BUN 11 mg/dL (7-18) 07/17/20 04:23 Creatinine 0.87 mg/dL (0.55-1.02) 07/17/20 04:23 Est GFR (MDRD) Af Amer > 60 (>60) 07/17/20 04:23 Est GFR (MDRD) Non-Af > 60 (>60) 07/17/20 04:23 Glucose 152 mg/dL (65-99) H 07/17/20 04:23 Calcium 8.5 mg/dL (8.5-10.1) 07/17/20 04:23 Corrected Calcium 9.9 mg/dL (8.5-10.1) 07/17/20 04:23 Ferritin 459 ng/mL (8-252) H 07/17/20 04:23 Total Bilirubin 0.20 mg/dL (0.2-1.0) 07/17/20 04:23 AST 38 Units/L (15-37) H 07/17/20 04:23 ALT 48 Units/L (12-78) 07/17/20 04:23 Alkaline Phosphatase 56 Units/L (46-116) 07/17/20 04:23 Creatine Kinase 52 Units/L (26-192) 07/14/20 16:24 CK-MB (CK-2) < 1.0 ng/mL (0-4.0) 07/14/20 16:24 CK/CKMB % Calc 1.9 % (<4) 07/14/20 16:24 Troponin I < 0.02 ng/mL (0-1.5) 07/14/20 16:24 C-Reactive Protein 23.70 mg/L (0-3.0) H 07/17/20 04:23 B-Natriuretic Peptide 95.2 pg/mL (0-79) H 07/16/20 04:36 Total Protein 5.8 g/dL (6.4-8.2) L 07/17/20 04:23 Albumin 2.3 g/dL (3.4-5.0) L 07/17/20 04:23 Globulin 3.5 g/dL (2.5-4.5) 07/17/20 04:23 Albumin/Globulin Ratio 0.7 Ratio (1.1-2.1) L 07/17/20 04:23 Blood Type O POSITIVE 07/15/20 10:20 - Plan (1) Pneumonia due to 2019 novel coronavirus Status: Acute Plan: NS WITH 20MEQ KCL AT 75 ML/HR, REMDESIVIR 100MG IV DAILY, LEVAQUIN 750MG IV DAILY, DUONEBS QID, PULMICORT NEBS BID, MUCOMYST IN NEBS BID, TESSALON PERLES 200MG PO TID, TUSSIONEX 5ML PO Q12H, PEPCID 20MG IV Q12H, ROBITUSSIN DM 10 ML PO QID, SOLU-MEDROL 80MG IV Q8H, ZOFRAN 4MG IV Q6H PRN, PROTONIX 40MG IV BID, PHENERGAN 12.5MG IM Q6H PRN. SUPPLEMENTAL OXYGEN (2) Hypokalemia Status: Acute (3) Dyslipidemia Status: Chronic (4) Depression Status: Chronic Qualifiers: Depression Type: unspecified Qualified Code(s): F32.9 - Major depressive disorder, single episode, unspecified
[2020-07-17] MEDS: REMDESIVIR (INVESTIGATIONAL DRUG GS-5734) 100 MG in NS 250 ML IV 250 ML IV SCH (11:49)
[2020-07-17] MEDS ORDERED: MAGNESIUM SULFATE 1 GRAM/100 mL PREMIX 1 GM/100 ML BAG IV PRN (20:41)
[2020-07-17] MEDS ORDERED: POTASSIUM CHL 40 MEQ/NS 0.45% 500 ML IV PRN (20:41)
[2020-07-17] MEDS ORDERED: POTASSIUM CHLORIDE LIQ 20 MEQ UDC PO PRN (20:41)
[2020-07-17] MEDS ORDERED: MICRO K EXTEN CAP 10 MEQ PO PRN (20:41)
[2020-07-17] MEDS ORDERED: K-RIDER 10 MEQ/NS 100 ML 10 MEQ/100 ML BAG IV PRN (20:41)
[2020-07-17] MEDS ORDERED: KLOR-CON PO PRN (20:41)
[2020-07-17] MEDS ORDERED: POTASSIUM CHL 60 MEQ/NS 0.45% 500 ML IV PRN (20:41)
[2020-07-17] MEDS ORDERED: COLACE CAP 100 MG PO ONE (20:52)
[2020-07-17] MEDS ORDERED: MIRALAX POWDER (1 DOSE 17 G) ONE (20:52)
[2020-07-17] MEDS ORDERED: MIRALAX POWDER (1 DOSE 17 G) PO PRN (21:03)
[2020-07-17] MEDS: ZOCOR TAB 20 MG PO SCH (21:06)
[2020-07-17] MEDS: COLACE CAP 100 MG PO SCH (21:08)
[2020-07-18] MEDS: NS + KCL 20 MEQ/L 1,000 ML IV SCH ×2 (02:10→15:24)
[2020-07-18] MEDS: ROBITUSSIN DM PO SCH ×5 (02:12→21:45)
[2020-07-18 05:25] LABS: BASOPHILS % (AUTO) 0.2 % (0.2-1.0); HEMATOCRIT 34.5 % (36.0-47.0); HEMOGLOBIN 11.8 g/dL (12.0-16.0); LYMPHOCYTES # (AUTO) 1.1 X10^3/uL (1.3-2.9); LYMPHOCYTES % (AUTO) 9.2 % (21.0-51.0); MEAN CORPUSCULAR HEMOGLOBIN 29.2 pg (27.0-34.0); MEAN CORPUSCULAR HGB CONC 34.1 g/dL (33.0-35.0); MEAN CORPUSCULAR VOLUME 85.8 fL (80.0-100.0); MEAN PLATELET VOLUME 8.5 fL (7.4-11.0); MONOCYTES # (AUTO) 0.9 x10^3/uL (0.3-0.8); MONOCYTES % (AUTO) 7.3 % (0.0-13.0); NEUTROPHILS # (AUTO) 9.8 x10^3/uL (2.2-4.8); NEUTROPHILS % (AUTO) 83.3 % (42.0-75.0); PLATELET COUNT 430 X10^3/uL (150.0-450.0); RED BLOOD COUNT 4.02 X10^6/uL (3.5-5.4); RED CELL DISTRIBUTION WIDTH 12.8 % (11.6-16.5); WHITE BLOOD COUNT 11.8 X10^3/uL (3.6-10.0)
[2020-07-18 05:42] LABS: ALANINE AMINOTRANSFERASE 54 Units/L (12-78); ALBUMIN 2.2 g/dL (3.4-5.0); ALKALINE PHOSPHATASE 58 Units/L (46-116); ASPARTATE AMINO TRANSFERASE 37 Units/L (15-37); BLOOD UREA NITROGEN 12 mg/dL (7-18); CALCIUM 8.1 mg/dL (8.5-10.1); CHLORIDE 109 mmol/L (98-107); COR CA(FOR HYPOALB) 9.5 mg/dL (8.5-10.1); COR NA(FOR HYPERGLY) 145 mmol/L (136-145); CREATININE 0.83 mg/dL (0.55-1.02); MAGNESIUM 2.1 mg/dL (1.7-2.9); SODIUM 144 mmol/L (136-145); TOTAL PROTEIN 5.4 g/dL (6.4-8.2); eGFR NON BLACK RACES > 60 (>60)
--- NOTE | 2020-07-18 05:56 | RAD ---
HISTORYFollow-up COVID-19STUDYChest AP [id number]/2020FINDINGSHeart size is within normal limits. The lungs remain hypoinflated . Bilateral infiltrates are unchanged when compared with the prior examination. No pleural effusions are identified. Bony thorax is unremarkable.IMPRESSIONNo change bilateral infiltratesElectronically s igned by: IVANA CORTEZ (Jul 18, 2020 05:55:56)
[2020-07-18 06:20] LABS: PLATELET MORPHOLOGY COMMENT NORMAL (NORMAL)
[2020-07-18] MEDS: SOLU-Medrol 40 MG VIAL IVP SCH ×3 (06:25→22:00)
[2020-07-18] MEDS: TESSALON PERLES PO SCH ×3 (06:26→22:00)
[2020-07-18] MEDS: ZOLOFT PO SCH (08:25)
[2020-07-18] MEDS: PEPCID 20 MG IV PREMIX* 20 MG/50 ML BAG IV SCH ×2 (08:25→21:30)
[2020-07-18] MEDS: ZINC SULFATE PO SCH (08:25)
[2020-07-18] MEDS: VSL#3 PO SCH (08:26)
[2020-07-18] MEDS: K-DUR TAB 20 MEQ PO PRN (08:26)
[2020-07-18] MEDS: KLONOPIN TAB 0.5 MG PO SCH ×2 (08:27→21:22)
[2020-07-18] MEDS: WELLBUTRIN SR 150 MG (BID) PO SCH ×2 (08:28→21:38)
[2020-07-18] MEDS: TUSSIONEX PENNKINETIC SUSP PO SCH ×2 (08:29→21:37)
[2020-07-18] MEDS: VISTARIL PO SCH (08:29)
[2020-07-18] MEDS: PROTONIX INJ 40 MG VIAL IVP SCH ×2 (08:30→22:00)
[2020-07-18] MEDS: REMDESIVIR (INVESTIGATIONAL DRUG GS-5734) 100 MG in NS 250 ML IV 250 ML IV SCH (08:30)
[2020-07-18] MEDS: LEVAQUIN PREMIX IV 750 MG 750 MG/150 ML BAG IV SCH (08:30)
[2020-07-18] MEDS: PULMICORT NEB TX 0.5 MG NEB SCH ×2 (09:25→21:59)
[2020-07-18] MEDS: MUCOMYST (RESPIRATORY USE ONLY) NEB SCH ×2 (09:25→22:00)
[2020-07-18] MEDS: DUONEB 0.5 MG/3 MG (3 mL) NEB SCH ×4 (09:25→21:59)
[2020-07-18] MEDS: LOVENOX INJ 30 MG SYR SC SCH ×2 (09:54→21:22)
--- NOTE | 2020-07-18 14:06 | PCM.PROG ---
Progress Note Progress Note for Day of Date of Exam: 07/18/20 Subjective Subjective: IS BEING TREATED FOR PNEUMONIA DUE TO COVID-19. SHE IS DOING BETTER THIS MORNING. SHE IS ON ROOM AIR WITH SOMETIMES NEEDING SUPPLEMENTAL O2 WHEN SHE FIRST GETS OUT OF BED AND HAS ALOT OF COUGHING. ON EXAMINATION, HEART IS REGULAR IN RATE AND RHYTHM. BILATERAL LUNGS ARE NOTED WITH DIMINISHED LUNG SOUNDS. ABDOMEN IS ROUND, SOFT, AND NON-TENDER. NORMAL BOWEL SOUNDS ARE NOTED IN ALL QUADRANTS. LABS/IMAGING: WBC 14.4>11.8, HGB 11.8, SODIUM 144, POTASSIUM 2.9, CR: 0.83, GLUCOSE 158. CRP:23>11. BLOOD CULTURES NEGATIVE. A CHEST XRAY WAS OBTAINED AND REVEALED: STABLE BILATERAL INFILTRATRES. SHE IS CURRENTLY RECEIVING NS AT 75 ML/HR WILL CHANGE TO KVO, REMDESIVIR 100MG IV DAILY, LEVAQUIN 750MG IV DAILY, DUONEBS QID, PULMICORT NEBS BID, MUCOMYST IN NEBS BID, TESSALON PERLES 200MG PO TID, TUSSIONEX 5ML PO Q12H, PEPCID 20MG IV Q12H, ROBITUSSIN DM 10 ML PO QID, SOLU-MEDROL 80MG IV Q8H, ZOFRAN 4MG IV Q6H PRN, PROTONIX 40MG IV BID, PHENERGAN 12.5MG IM Q6H PRN, KLONOPIN 0.5MG PO BID, AND FIORCET 1-2 TABS QID PRN. SHE IS HYPOKALEMIC, WILL REPLETE PER PROTOCOL. OBTAIN AMBULATORY O2. CONTINUE TO MONITOR AND FOLLOW UP LABS/IMAGING IN THE MORNING. Past Medical Family Social History Past Med/Fam/Surg Hx: No changes since H&P Allergies: Allergies No Known Drug Allergies Allergy (Verified 07/21/17 08:40) Review of Systems ROS: No change since H&P Vital Signs and I&O's Vital Signs: Temperature 98.5 F Pulse Rate [Left Brachial] 79 Pulse Rate 114 Respiratory Rate 17 Blood Pressure [Left Arm] 135/65 Blood Pressure 108/55 O2 Sat by Pulse Oximetry 97 Intake and Output: Intake & Output 07/15/20 07/16/20 07/17/20 07/18/20 23:59 23:59 23:59 23:59 Intake Total 2991 / 2991 3620 / 3620 3190 / 3190 600 / 600 Output Total 600 / 600 Balance 2991 / 2991 3620 / 3620 2590 / 2590 600 / 600 Physical Exam Oriented: Normal Eyes: Normal Ear: Normal Nose: Normal Throat: Normal Respiratory: Generalized and Diminished Cardiovascular: Normal : Normal Auscultation: Bowel Sounds: Normal Tenderness: Normal Skin: Normal Musculoskeletal: Normal Psychiatric: Normal Mood Description: Calm Affect: Normal Speech Pattern: Clear and Appropriate Laboratory and Diagnostics Result Diagrams: 07/18/20 04:27 07/18/20 04:27 Labs: 07/14/20 16:40 Blood Blood Culture - Preliminary 07/14/20 16:24 Blood Blood Culture - Preliminary Laboratory WBC 11.8 X10^3/uL (3.6-10.0) H 07/18/20 04:27 RBC 4.02 X10^6/uL (3.5-5.4) 07/18/20 04:27 Hgb 11.8 g/dL (12.0-16.0) L 07/18/20 04:27 Hct 34.5 % (36.0-47.0) L 07/18/20 04:27 MCV 85.8 fL (80.0-100.0) 07/18/20 04:27 MCH 29.2 pg (27.0-34.0) 07/18/20 04:27 MCHC 34.1 g/dL (33.0-35.0) 07/18/20 04:27 RDW 12.8 % (11.6-16.5) 07/18/20 04:27 Plt Count 430 X10^3/uL (150.0-450.0) 07/18/20 04:27 Plt Count Comment Adequate (ADEQUATE) 07/18/20 04:27 MPV 8.5 fL (7.4-11.0) 07/18/20 04:27 Neut % (Auto) 83.3 % (42.0-75.0) H 07/18/20 04:27 Lymph % (Auto) 9.2 % (21.0-51.0) L 07/18/20 04:27 Iron % (Auto) 7.3 % (0.0-13.0) 07/18/20 04:27 Eos % (Auto) 0.0 % (0.9-2.9) L 07/18/20 04:27 Baso % (Auto) 0.2 % (0.2-1.0) 07/18/20 04:27 Neut # (Auto) 9.8 x10^3/uL (2.2-4.8) H 07/18/20 04:27 Lymph # (Auto) 1.1 X10^3/uL (1.3-2.9) L 07/18/20 04:27 Iron # (Auto) 0.9 x10^3/uL (0.3-0.8) H 07/18/20 04:27 Eos # (Auto) 0.0 x10^3/uL (0.0-0.2) 07/18/20 04:27 Baso # (Auto) 0.0 X10^3/uL (0.0-0.1) 07/18/20 04:27 Absolute Nucleated RBC 0.0 /100WBC 07/18/20 04:27 Total Counted 100 07/18/20 04:27 Neutrophils % (Manual) 84 % (39-76) H 07/18/20 04:27 Lymphocytes % (Manual) 10 % (13-43) L 07/18/20 04:27 Monocytes % (Manual) 6 % (4-9) 07/18/20 04:27 Plt Morphology Comment Normal (NORMAL) 07/18/20 04:27 RBC Morphology Normal (NORMAL) 07/18/20 04:27 Sample Site Rrad 07/17/20 05:05 ABG pH 7.420 (7.35-7.45) 07/17/20 05:05 ABG pCO2 34.0 mmHg (35.0-45.0) L 07/17/20 05:05 ABG pO2 57.0 mmHg (80.0-100.0) L 07/17/20 05:05 ABG HCO3 22.1 mmol/L (22-26) 07/17/20 05:05 ABG O2 Saturation 90.0 % (90-100) 07/17/20 05:05 ABG Base Excess -1.8 mmol/L (-2.0-2.0) 07/17/20 05:05 Brant Test Pos 07/17/20 05:05 A-a Gradient 100.0 mmHg 07/17/20 05:05 FiO2 28.0 07/17/20 05:05 Blood Gas Comments Buck abg well-mtf 07/17/20 05:05 Sodium 144 mmol/L (136-145) 07/18/20 04:27 Corrected Sodium 145 mmol/L (136-145) 07/18/20 04:27 Potassium 2.9 mmol/L (3.5-5.1) L* 07/18/20 04:27 Chloride 109 mmol/L (98-107) H 07/18/20 04:27 Carbon Dioxide 27.0 mmol/L (21-32) 07/18/20 04:27 BUN 12 mg/dL (7-18) 07/18/20 04:27 Creatinine 0.83 mg/dL (0.55-1.02) 07/18/20 04:27 Est GFR (MDRD) Af Amer > 60 (>60) 07/18/20 04:27 Est GFR (MDRD) Non-Af > 60 (>60) 07/18/20 04:27 Glucose 158 mg/dL (65-99) H 07/18/20 04:27 Calcium 8.1 mg/dL (8.5-10.1) L 07/18/20 04:27 Corrected Calcium 9.5 mg/dL (8.5-10.1) 07/18/20 04:27 Magnesium 2.1 mg/dL (1.7-2.9) 07/18/20 04:27 Ferritin 425 ng/mL (8-252) H 07/18/20 04:27 Total Bilirubin 0.20 mg/dL (0.2-1.0) 07/18/20 04:27 AST 37 Units/L (15-37) 07/18/20 04:27 ALT 54 Units/L (12-78) 07/18/20 04:27 Alkaline Phosphatase 58 Units/L (46-116) 07/18/20 04:27 Creatine Kinase 52 Units/L (26-192) 07/14/20 16:24 CK-MB (CK-2) < 1.0 ng/mL (0-4.0) 07/14/20 16:24 CK/CKMB % Calc 1.9 % (<4) 07/14/20 16:24 Troponin I < 0.02 ng/mL (0-1.5) 07/14/20 16:24 C-Reactive Protein 11.50 mg/L (0-3.0) H 07/18/20 04:27 B-Natriuretic Peptide 95.2 pg/mL (0-79) H 07/16/20 04:36 Total Protein 5.4 g/dL (6.4-8.2) L 07/18/20 04:27 Albumin 2.2 g/dL (3.4-5.0) L 07/18/20 04:27 Globulin 3.2 g/dL (2.5-4.5) 07/18/20 04:27 Albumin/Globulin Ratio 0.7 Ratio (1.1-2.1) L 07/18/20 04:27 Blood Type O POSITIVE 07/15/20 10:20 Plan (1) Pneumonia due to 2019 novel coronavirus: Status: Acute Plan: NS WITH 20MEQ KCL AT 75 ML/HR, REMDESIVIR 100MG IV DAILY, LEVAQUIN 750MG IV DAILY, DUONEBS QID, PULMICORT NEBS BID, MUCOMYST IN NEBS BID, TESSALON PERLES 200MG PO TID, TUSSIONEX 5ML PO Q12H, PEPCID 20MG IV Q12H, ROBITUSSIN DM 10 ML PO QID, SOLU-MEDROL 80MG IV Q8H, ZOFRAN 4MG IV Q6H PRN, PROTONIX 40MG IV BID, PHENERGAN 12.5MG IM Q6H PRN. SUPPLEMENTAL OXYGEN (2) Hypokalemia: Status: Acute (3) Dyslipidemia: Status: Chronic (4) Depression: Status: Chronic Qualifiers: Depression Type: unspecified Qualified Code(s): F32.9 - Major depressive disorder, single episode, unspecified
[2020-07-18] MEDS: COLACE CAP 100 MG PO SCH (21:22)
[2020-07-18] MEDS: ZOCOR TAB 20 MG PO SCH (21:38)
[2020-07-19 04:56] LABS: BASOPHILS % (AUTO) 0.1 % (0.2-1.0); HEMATOCRIT 35.5 % (36.0-47.0); HEMOGLOBIN 12.1 g/dL (12.0-16.0); LYMPHOCYTES # (AUTO) 1.5 X10^3/uL (1.3-2.9); LYMPHOCYTES % (AUTO) 10.8 % (21.0-51.0); MEAN CORPUSCULAR HEMOGLOBIN 29.4 pg (27.0-34.0); MEAN CORPUSCULAR HGB CONC 34.1 g/dL (33.0-35.0); MEAN CORPUSCULAR VOLUME 86.2 fL (80.0-100.0); MEAN PLATELET VOLUME 8.3 fL (7.4-11.0); MONOCYTES # (AUTO) 1.1 x10^3/uL (0.3-0.8); NEUTROPHILS % (AUTO) 81.1 % (42.0-75.0); PLATELET COUNT 453 X10^3/uL (150.0-450.0); RED BLOOD COUNT 4.11 X10^6/uL (3.5-5.4); RED CELL DISTRIBUTION WIDTH 12.9 % (11.6-16.5); WHITE BLOOD COUNT 13.6 X10^3/uL (3.6-10.0)
[2020-07-19 05:13] LABS: ALANINE AMINOTRANSFERASE 46 Units/L (12-78); ALBUMIN 2.2 g/dL (3.4-5.0); ALKALINE PHOSPHATASE 62 Units/L (46-116); ASPARTATE AMINO TRANSFERASE 28 Units/L (15-37); BLOOD UREA NITROGEN 14 mg/dL (7-18); CALCIUM 8.1 mg/dL (8.5-10.1); CARBON DIOXIDE 29.9 mmol/L (21-32); CHLORIDE 109 mmol/L (98-107); COR CA(FOR HYPOALB) 9.5 mg/dL (8.5-10.1); COR NA(FOR HYPERGLY) 144 mmol/L (136-145); CREATININE 0.84 mg/dL (0.55-1.02); SODIUM 143 mmol/L (136-145); TOTAL PROTEIN 5.3 g/dL (6.4-8.2); eGFR NON BLACK RACES > 60 (>60)
[2020-07-19 05:38] LABS: PLATELET MORPHOLOGY COMMENT NORMAL (NORMAL)
--- NOTE | 2020-07-19 05:44 | RAD ---
HISTORYSOBSTUDYAP [id number] normal heart size and contour. Patchy bilateral pulmonary infiltrates are again noted, right greater than left. There is no evidence for new consolidation, dev eloping edema or pneumothorax.IMPRESSIONPersistent bilateral infiltrates/pneumonia; no interval blackman aleElectronically signed by: SHERRI VALDEZ (Jul 19, 2020 05:44:03)
[2020-07-19] MEDS: TESSALON PERLES PO SCH (06:09)
[2020-07-19] MEDS: SOLU-Medrol 40 MG VIAL IVP SCH (06:09)
[2020-07-19] MEDS: NS + KCL 20 MEQ/L 1,000 ML IV SCH (06:09)
[2020-07-19] MEDS: K-DUR TAB 20 MEQ PO PRN (06:10)
[2020-07-19] MEDS: KLONOPIN TAB 0.5 MG PO SCH (07:59)
[2020-07-19] MEDS: PROTONIX INJ 40 MG VIAL IVP SCH (07:59)
[2020-07-19] MEDS: PEPCID 20 MG IV PREMIX* 20 MG/50 ML BAG IV SCH (08:00)
[2020-07-19] MEDS: LEVAQUIN PREMIX IV 750 MG 750 MG/150 ML BAG IV SCH (08:00)
[2020-07-19] MEDS: LOVENOX INJ 30 MG SYR SC SCH (08:01)
[2020-07-19] MEDS: TUSSIONEX PENNKINETIC SUSP PO SCH (08:01)
[2020-07-19] MEDS: VSL#3 PO SCH (08:02)
[2020-07-19] MEDS: VISTARIL PO SCH (08:02)
[2020-07-19] MEDS: ZOLOFT PO SCH (08:03)
[2020-07-19] MEDS: ZINC SULFATE PO SCH (08:03)
[2020-07-19] MEDS: WELLBUTRIN SR 150 MG (BID) PO SCH (08:03)
[2020-07-19] MEDS: MUCOMYST (RESPIRATORY USE ONLY) NEB SCH (09:15)
[2020-07-19] MEDS: DUONEB 0.5 MG/3 MG (3 mL) NEB SCH (09:15)
[2020-07-19] MEDS: PULMICORT NEB TX 0.5 MG NEB SCH (09:15)
--- NOTE | 2020-07-19 10:57 | W.DIS.FURT ---
Summary of Discharge Discharge Summary of Date Date of Exam: 07/19/20 Admission Date Date of Admission: 07/14/20 Admission Diagnosis Patient Problems (Updated 07/17/20 @ 11:00 by Wyatt Fairchild) Pneumonia due to 2019 novel coronavirus (Acute) U07.1, J12.89 Dyslipidemia (Chronic) E78.5 Depression (Chronic) F32.9 Hypokalemia (Acute) E87.6 Hospital Course: PT IS A 69 YO F ADMITTED FOR PNEUMONIA DUE TO COVID-19. HER HOSPITAL COURSE INCLUDED TREATMENTS: IVF, REMDESIVIR 100MG IV DAILY, LEVAQUIN 750MG IV DAILY, DUONEBS QID, PULMICORT NEBS BID, MUCOMYST IN NEBS BID, TESSALON PERLES 200MG PO TID, TUSSIONEX 5ML PO Q12H, PEPCID 20MG IV Q12H, ROBITUSSIN DM 10 ML PO QID, SOLU-MEDROL 80MG IV Q8H, ZOFRAN 4MG IV Q6H PRN, PROTONIX 40MG IV BID, PHENERGAN 12.5MG IM Q6H PRN, KLONOPIN 0.5MG PO BID, AND FIORCET 1-2 TABS QID PRN. HEART IS REGULAR IN RATE AND RHYTHM. BILATERAL LUNGS ARE NOTED WITH DIMINISHED LUNG SOUNDS. ABDOMEN IS ROUND, SOFT, AND NON-TENDER. NORMAL BOWEL SOUNDS ARE NOTED IN ALL QUADRANTS. LABS/IMAGING: WBC 13.6, HGB 12.1, PLT:453, SODIUM 144, POTASSIUM 3.4, CR: 0.84, GLUCOSE 155. CRP:7.3. BLOOD CULTURES NEGATIVE. CXR: NO INTERVAL CHANGE, STABLE BILATERAL INFILTRATES. ON DAY OF DISCHARGE, SHE WAS WEANED OFF SUPPLEMENTAL O2, ON RA. SHE STILL REQUIRES SOME SUPPLEMENTAL O2 WITH AMBULATION/EXERTION AND HAS HOME OXYGEN SET UP FOR HER DISCHARGE. SHE IS STABLE FOR DISCHARGE, RX 4 MORE DAYS OF LEVAQUIN TO COMPLETE 10 DAY COURSE AND PREDNISONE X 5 DAYS. INSTRUCTED TO FOLLOW UP WITH PCP IN 1 WEEK. Vital Signs: Vital Signs (72 hours) 07/16/20 11:00 07/16/20 12:00 07/16/20 13:00 Temperature 98.6 F Pulse Rate 83 79 80 Respiratory Rate 13 19 12 Blood Pressure 100/53 102/51 96/53 O2 Sat by Pulse Oximetry 98 99 100 07/16/20 13:11 07/16/20 13:45 07/16/20 14:00 Temperature Pulse Rate 87 91 H Respiratory Rate 13 Blood Pressure 96/53 109/55 O2 Sat by Pulse Oximetry 100 98 07/16/20 15:00 07/16/20 16:00 07/16/20 16:50 Temperature 98.0 F Pulse Rate 88 83 90 Respiratory Rate 14 12 Blood Pressure 112/56 110/56 O2 Sat by Pulse Oximetry 100 100 100 07/16/20 17:00 07/16/20 17:15 07/16/20 17:41 Temperature Pulse Rate 111 H 104 H Respiratory Rate 23 20 Blood Pressure 112/54 105/61 O2 Sat by Pulse Oximetry 100 99 07/16/20 17:56 07/16/20 18:00 07/16/20 18:15 Temperature Pulse Rate 104 H 100 H Respiratory Rate 19 17 20 Blood Pressure 109/55 114/54 O2 Sat by Pulse Oximetry 100 99 07/16/20 19:00 07/16/20 20:00 07/16/20 20:40 Temperature 97.9 F Pulse Rate 92 H 86 102 H Respiratory Rate 0 L 17 Blood Pressure 109/53 118/55 O2 Sat by Pulse Oximetry 99 99 99 07/16/20 21:00 07/16/20 22:00 07/16/20 23:00 Temperature Pulse Rate 109 H 104 H 87 Respiratory Rate 19 18 16 Blood Pressure 114/53 111/55 114/56 O2 Sat by Pulse Oximetry 100 99 97 07/17/20 00:00 07/17/20 01:00 07/17/20 02:00 Temperature 98.1 F Pulse Rate 91 H 89 79 Respiratory Rate 19 20 17 Blood Pressure 100/55 101/53 106/56 O2 Sat by Pulse Oximetry 95 94 L 94 L 07/17/20 03:00 07/17/20 04:00 07/17/20 05:00 Temperature 98.1 F Pulse Rate 73 74 99 H Respiratory Rate 19 19 21 Blood Pressure 105/54 98/53 107/66 O2 Sat by Pulse Oximetry 93 L 93 L 95 07/17/20 06:00 07/17/20 07:00 07/17/20 08:00 Temperature 97.4 F L Pulse Rate 73 68 85 Respiratory Rate 15 17 19 Blood Pressure 117/56 122/60 125/61 O2 Sat by Pulse Oximetry 98 97 96 07/17/20 09:00 07/17/20 10:00 07/17/20 10:05 Temperature Pulse Rate 78 132 H 119 H Respiratory Rate 18 27 H 20 Blood Pressure 105/55 120/56 O2 Sat by Pulse Oximetry 96 94 L 94 L 07/17/20 11:00 07/17/20 12:00 07/17/20 13:00 Temperature Pulse Rate 93 H 81 98 H Respiratory Rate 20 20 19 Blood Pressure 115/58 102/55 98/57 O2 Sat by Pulse Oximetry 95 98 97 07/17/20 14:00 07/17/20 15:00 07/17/20 16:00 Temperature 98 F Pulse Rate 108 H 89 86 Respiratory Rate 17 17 19 Blood Pressure 106/55 104/51 94/50 O2 Sat by Pulse Oximetry 100 98 100 07/17/20 17:00 07/17/20 18:00 07/17/20 19:00 Temperature Pulse Rate 86 89 105 H Respiratory Rate 22 20 18 Blood Pressure 104/53 103/54 111/53 O2 Sat by Pulse Oximetry 97 99 99 07/17/20 20:00 07/17/20 20:30 07/17/20 21:00 Temperature 98.1 F Pulse Rate 93 H 100 H 109 H Respiratory Rate 17 22 Blood Pressure 111/57 115/56 O2 Sat by Pulse Oximetry 100 100 97 07/17/20 22:00 07/17/20 23:00 07/18/20 00:00 Temperature 97.9 F Pulse Rate 95 H 88 80 Respiratory Rate 20 18 Blood Pressure 118/58 120/58 119/57 O2 Sat by Pulse Oximetry 99 97 100 07/18/20 01:00 07/18/20 02:00 07/18/20 03:00 Temperature Pulse Rate 77 74 74 Respiratory Rate 18 18 17 Blood Pressure 123/59 112/54 118/56 O2 Sat by Pulse Oximetry 95 96 97 07/18/20 04:00 07/18/20 05:00 07/18/20 06:00 Temperature 98 F Pulse Rate 70 80 72 Respiratory Rate 19 18 20 Blood Pressure 107/54 104/58 113/66 O2 Sat by Pulse Oximetry 95 98 99 07/18/20 07:00 07/18/20 07:01 07/18/20 08:00 Temperature Pulse Rate 68 66 67 Respiratory Rate 18 17 15 Blood Pressure 139/63 O2 Sat by Pulse Oximetry 94 L 95 97 07/18/20 08:01 07/18/20 09:00 07/18/20 10:00 Temperature 98.5 F Pulse Rate 65 96 H 104 H Respiratory Rate 18 19 19 Blood Pressure 117/56 113/59 103/51 O2 Sat by Pulse Oximetry 97 97 94 L 07/18/20 11:00 07/18/20 12:00 07/18/20 13:00 Temperature Pulse Rate 82 75 114 H Respiratory Rate 19 21 17 Blood Pressure 109/63 112/55 108/55 O2 Sat by Pulse Oximetry 97 94 L 97 07/18/20 14:00 07/18/20 15:00 07/18/20 16:00 Temperature Pulse Rate 105 H 97 H 85 Respiratory Rate 19 22 22 Blood Pressure 103/56 124/58 113/60 O2 Sat by Pulse Oximetry 99 99 98 07/18/20 17:00 07/18/20 18:00 07/18/20 19:00 Temperature Pulse Rate 99 H 112 H 97 H Respiratory Rate 21 19 18 Blood Pressure 119/56 128/60 113/54 O2 Sat by Pulse Oximetry 95 97 98 07/18/20 20:00 07/18/20 21:00 07/18/20 22:00 Temperature 97.8 F Pulse Rate 85 93 H 121 H Respiratory Rate 19 22 32 H Blood Pressure 119/56 107/55 120/65 O2 Sat by Pulse Oximetry 98 95 93 L 07/18/20 23:00 07/19/20 00:00 07/19/20 01:00 Temperature 97.8 F Pulse Rate 100 H 86 79 Respiratory Rate 21 56 H 21 Blood Pressure 120/59 137/66 139/66 O2 Sat by Pulse Oximetry 96 98 98 07/19/20 02:00 07/19/20 03:00 07/19/20 04:00 Temperature 97.8 F Pulse Rate 84 102 H 76 Respiratory Rate 19 11 L 19 Blood Pressure 127/60 121/55 123/60 O2 Sat by Pulse Oximetry 96 95 97 07/19/20 05:00 07/19/20 06:00 07/19/20 07:00 Temperature Pulse Rate 72 69 70 Respiratory Rate 22 21 18 Blood Pressure 137/73 118/62 O2 Sat by Pulse Oximetry 99 96 97 07/19/20 07:01 07/19/20 08:00 07/19/20 08:01 Temperature 98.7 F Pulse Rate 67 79 79 Respiratory Rate 22 17 22 Blood Pressure 134/79 136/64 O2 Sat by Pulse Oximetry 97 97 97 07/19/20 09:00 07/19/20 09:15 Temperature Pulse Rate 86 90 Respiratory Rate 21 Blood Pressure 122/62 O2 Sat by Pulse Oximetry 99 99 Labs: Laboratory Last Values WBC 13.6 X10^3/uL (3.6-10.0) H 07/19/20 04:20 RBC 4.11 X10^6/uL (3.5-5.4) 07/19/20 04:20 Hgb 12.1 g/dL (12.0-16.0) 07/19/20 04:20 Hct 35.5 % (36.0-47.0) L 07/19/20 04:20 MCV 86.2 fL (80.0-100.0) 07/19/20 04:20 MCH 29.4 pg (27.0-34.0) 07/19/20 04:20 MCHC 34.1 g/dL (33.0-35.0) 07/19/20 04:20 RDW 12.9 % (11.6-16.5) 07/19/20 04:20 Plt Count 453 X10^3/uL (150.0-450.0) H 07/19/20 04:20 Plt Count Comment Increased (ADEQUATE) A 07/19/20 04:20 MPV 8.3 fL (7.4-11.0) 07/19/20 04:20 Neut % (Auto) 81.1 % (42.0-75.0) H 07/19/20 04:20 Lymph % (Auto) 10.8 % (21.0-51.0) L 07/19/20 04:20 [place] % (Auto) 8.0 % (0.0-13.0) 07/19/20 04:20 Eos % (Auto) 0.0 % (0.9-2.9) L 07/19/20 04:20 Baso % (Auto) 0.1 % (0.2-1.0) L 07/19/20 04:20 Neut # (Auto) 11.0 x10^3/uL (2.2-4.8) H 07/19/20 04:20 Lymph # (Auto) 1.5 X10^3/uL (1.3-2.9) 07/19/20 04:20 [place] # (Auto) 1.1 x10^3/uL (0.3-0.8) H 07/19/20 04:20 Eos # (Auto) 0.0 x10^3/uL (0.0-0.2) 07/19/20 04:20 Baso # (Auto) 0.0 X10^3/uL (0.0-0.1) 07/19/20 04:20 Absolute Nucleated RBC 0.0 /100WBC 07/19/20 04:20 Total Counted 100 07/19/20 04:20 Neutrophils % (Manual) 80 % (39-76) H 07/19/20 04:20 Lymphocytes % (Manual) 13 % (13-43) 07/19/20 04:20 Monocytes % (Manual) 7 % (4-9) 07/19/20 04:20 Plt Morphology Comment Normal (NORMAL) 07/19/20 04:20 RBC Morphology Normal (NORMAL) 07/19/20 04:20 Sample Site Rrad 07/17/20 05:05 ABG pH 7.420 (7.35-7.45) 07/17/20 05:05 ABG pCO2 34.0 mmHg (35.0-45.0) L 07/17/20 05:05 ABG pO2 57.0 mmHg (80.0-100.0) L 07/17/20 05:05 ABG HCO3 22.1 mmol/L (22-26) 07/17/20 05:05 ABG O2 Saturation 90.0 % (90-100) 07/17/20 05:05 ABG Base Excess -1.8 mmol/L (-2.0-2.0) 07/17/20 05:05 Brant Test Pos 07/17/20 05:05 A-a Gradient 100.0 mmHg 07/17/20 05:05 FiO2 28.0 07/17/20 05:05 Blood Gas Comments Buck abg well-mtf 07/17/20 05:05 Sodium 143 mmol/L (136-145) 07/19/20 04:20 Corrected Sodium 144 mmol/L (136-145) 07/19/20 04:20 Potassium 3.4 mmol/L (3.5-5.1) L 07/19/20 04:20 Chloride 109 mmol/L (98-107) H 07/19/20 04:20 Carbon Dioxide 29.9 mmol/L (21-32) 07/19/20 04:20 BUN 14 mg/dL (7-18) 07/19/20 04:20 Creatinine 0.84 mg/dL (0.55-1.02) 07/19/20 04:20 Est GFR (MDRD) Af Amer > 60 (>60) 07/19/20 04:20 Est GFR (MDRD) Non-Af > 60 (>60) 07/19/20 04:20 Glucose 155 mg/dL (65-99) H 07/19/20 04:20 Calcium 8.1 mg/dL (8.5-10.1) L 07/19/20 04:20 Corrected Calcium 9.5 mg/dL (8.5-10.1) 07/19/20 04:20 Magnesium 2.1 mg/dL (1.7-2.9) 07/18/20 04:27 Ferritin 425 ng/mL (8-252) H 07/18/20 04:27 Total Bilirubin 0.30 mg/dL (0.2-1.0) 07/19/20 04:20 AST 28 Units/L (15-37) 07/19/20 04:20 ALT 46 Units/L (12-78) 07/19/20 04:20 Alkaline Phosphatase 62 Units/L (46-116) 07/19/20 04:20 Creatine Kinase 52 Units/L (26-192) 07/14/20 16:24 CK-MB (CK-2) < 1.0 ng/mL (0-4.0) 07/14/20 16:24 CK/CKMB % Calc 1.9 % (<4) 07/14/20 16:24 Troponin I < 0.02 ng/mL (0-1.5) 07/14/20 16:24 C-Reactive Protein 7.30 mg/L (0-3.0) H 07/19/20 04:20 B-Natriuretic Peptide 95.2 pg/mL (0-79) H 07/16/20 04:36 Total Protein 5.3 g/dL (6.4-8.2) L 07/19/20 04:20 Albumin 2.2 g/dL (3.4-5.0) L 07/19/20 04:20 Globulin 3.1 g/dL (2.5-4.5) 07/19/20 04:20 Albumin/Globulin Ratio 0.7 Ratio (1.1-2.1) L 07/19/20 04:20 Blood Type O POSITIVE 07/15/20 10:20 Reason For Visit: COVID 19 POSITIVE,HTN,FEVER,SOB Discharge Date Discharge Date: 07/19/20 Discharge Diagnosis All Active Problems (Updated 07/17/20 @ 11:00 by Wyatt Fairchild) Pneumonia due to 2019 novel coronavirus (Acute) Dyslipidemia (Chronic) Depression (Chronic) Hypokalemia (Acute) Plan of Treatment: Continue with present treatment and follow up plan. Pt is to keep follow up appointment as instructed and take medications as ordered. Discharge Medications Discharge Medications: No Known Drug Allergies Allergy (Verified 07/21/17 08:40) CONTINUE taking the following medications albuterol sulfate [Ventolin HFA] 1 puff INHALATION TID PRN 07/16/20 [History] bupropion HCl 150 mg PO BID 07/16/20 [History] famotidine 20 mg PO BID 07/16/20 [History] hydroxychloroquine 200 mg PO BID 07/16/20 [History] hydroxyzine pamoate 25 mg PO DAILY 07/16/20 [History] simvastatin 20 mg PO HS 07/16/20 [History] zinc sulfate 220 mg PO DAILY 07/16/20 [History] New Prescriptions benzonatate 200 mg PO TID 10 Days #60 cap 07/19/20 [Rx] hydrocodone-chlorpheniramine 5 ml PO Q12H 15 Days #150 ml MDD 10 mL 07/19/20 [Rx] levofloxacin [Levaquin] 750 mg PO Q24H 4 Days #4 tab 07/19/20 [Rx] prednisone 40 mg PO DAILY 5 Days #10 tab 07/19/20 [Rx] Discharge Disposition Assessment: Stable at time of discharge no acute distress noted at time of discharge. Discharge Disposition: HOME Discharge Condition: STABLE
[2020-07-19 12:08] VITALS: BP 117/62
== END 2020-07-19 12:45 | disposition home or self-care (01) | DRG 177 ==
LOC: ICU 15:07
PROVIDERS: ADMIT Internal Medicine; ATTEND Internal Medicine
DX: I10 Essential (primary) hypertension; E78.5 Hyperlipidemia, unspecified; R51 Headache; R79.82 Elevated C-reactive protein (CRP); U07.1 COVID-19; E87.6 Hypokalemia; J12.89 Other viral pneumonia; R06.02 Shortness of breath; R26.89 Other abnormalities of gait and mobility; F32.89 Other specified depressive episodes